=== PATIENT | male | born 1995 | race Caucasian/White ===

== ENCOUNTER → 2017-11-14 | Outpatient (CLI) | payer OTHER ==
[~2017-11-14] MED LIST: LEVO125T72 PO; LEVO300T2 PO
--- NOTE | 2017-11-14 09:13 | DIAGNOSTIC IMAGING REPORT ---
R SCAPULA, L SCAPULA HISTORY: 21 years-old Male NECK PAIN acute bilateral shoulder pain COMPARISON: None available TECHNIQUE: 2 views of the bilateral scapula FINDINGS: RIGHT: No acute fracture or dislocation. No significant degenerative changes. Imaged lung henry appear clear. LEFT: No acute fracture, dislocation or significant degenerative changes. Imaged lung henry appear clear. IMPRESSION: No acute fracture or dislocation. The above report was generated using voice recognition software. It may contain grammatical, syntax or spelling errors. Electronically signed by: Jose Mccoy M.D. 11/14/2017 9:11 AM Dictated Date/Time: 11/14/2017 9:09 AM
--- NOTE | 2017-11-14 09:14 | DIAGNOSTIC IMAGING REPORT ---
THORACIC SPINE 3 VIEWS ROUTINE HISTORY: 21 years-old Male NECK PAIN acute neck pain COMPARISON: CT abdomen and pelvis 10/08/2016 TECHNIQUE: 4 views of the thoracic spine FINDINGS: There are 12 thoracic type vertebral segments present. No acute fracture, subluxation or significant degenerative changes. Imaged lung henry appear clear. No rib fracture identified. IMPRESSION: No acute fracture or subluxation. The above report was generated using voice recognition software. It may contain grammatical, syntax or spelling errors. Electronically signed by: Jose Mccoy M.D. 11/14/2017 9:13 AM Dictated Date/Time: 11/14/2017 9:12 AM
--- NOTE | 2017-11-14 09:21 | DIAGNOSTIC IMAGING REPORT ---
CERVICAL SPINE 2 OR 3 VIEWS CLINICAL HISTORY: Neck pain. COMPARISON STUDY: No previous studies for comparison. FINDINGS: Alignment of the cervical spine is anatomic. No fracture or osseous lesion is identified within the cervical spine by radiography. Facet joints are intact. Disc spaces are preserved. IMPRESSION: Unremarkable cervical spine radiographs. Electronically signed by: Surinder Gomez M.D. 11/14/2017 9:20 AM Dictated Date/Time: 11/14/2017 9:18 AM
[2017-11-14 09:56] LABS: THYROID STIMULATING HORMONE 1.19 uIu/ml (0.300-4.500)
== END | disposition home or self-care (01) ==
LOC: C.RAD1850 08:31
PROVIDERS: ATTEND Internal Medicine
DX: M54.2 Cervicalgia (principal); E03.9 Hypothyroidism, unspecified

== ENCOUNTER → 2017-11-27 | Outpatient (CLI) | payer OTHER ==
--- NOTE | 2017-11-27 13:18 | DIAGNOSTIC IMAGING REPORT ---
THYROID ULTRASOUND CLINICAL HISTORY: Thyroid goiter. COMPARISON STUDY: None. TECHNIQUE: Sonography of the thyroid gland was performed. FINDINGS: Multiple thyroid nodules are noted. The gland is markedly enlarged and hypervascular. The right thyroid lobe measures 9.4 x 2.5 x 3.6 cm and the left lobe measures 9 x 2.6 x 3.5 cm. Note is made of a solid slightly hypoechoic isthmus nodule measures 3.4 x 1.4 x 2.4 cm. There are numerous additional similar-appearing solid and mixed cystic and solid nodules within each thyroid lobe. The largest right lobe nodule is within the upper pole, measuring 2.8 x 1.6 x 1.9 cm. The largest left lobe nodule is within the lower pole, measuring 2.7 x 1.7 x 1.9 cm. IMPRESSION: 1. Markedly enlarged hypervascular multinodular thyroid gland consistent with a multinodular goiter. 2. Numerous similar-appearing thyroid nodules. The sonographic appearance is nonspecific but none of these nodules have suspicious imaging characteristics. Electronically signed by: Surinder Gomez M.D. 11/27/2017 1:17 PM Dictated Date/Time: 11/27/2017 9:58 AM
== END | disposition home or self-care (01) ==
LOC: C.ULTR 09:09
PROVIDERS: ATTEND Internal Medicine
DX: E04.2 Nontoxic multinodular goiter (principal); M54.2 Cervicalgia

== ENCOUNTER → 2018-01-15 | Outpatient (CLI) | payer OTHER ==
[2018-01-15 15:00] LABS: HEMATOCRIT 43.9 % (42-52); HEMOGLOBIN 15.4 g/dL (14.0-18.0); MEAN CELL VOLUME 84.9 fL (80-100); MEAN CORPUSCULAR HEMOGLOBIN 29.8 pg (25-34); MEAN CORPUSCULAR HGB CONC 35.1 g/dl (32-36); MEAN PLATELET VOLUME 10.4 fL (7.4-10.4); PLATELET COUNT 187 K/uL (130-400); RED CELL DISTRIBUTION WIDTH CV 13.1 % (11.5-14.5); RED CELL DISTRIBUTION WIDTH SD 40.3 fL (36.4-46.3); WHITE BLOOD COUNT 4.93 K/uL (4.8-10.8)
[2018-01-15 15:11] LABS: BLOOD UREA NITROGEN 12 mg/dl (7-18); CALCIUM 9.4 mg/dl (8.5-10.1); CARBON DIOXIDE 27 mmol/L (21-32); CREATININE 1.04 mg/dl (0.60-1.40); GLUCOSE 90 mg/dl (70-99); POTASSIUM 3.8 mmol/L (3.5-5.1); SODIUM 137 mmol/L (136-145)
== END | disposition home or self-care (01) ==
LOC: C.LAB1850 12:30
PROVIDERS: ATTEND Internal Medicine
DX: E03.9 Hypothyroidism, unspecified (principal)

== ENCOUNTER → 2018-01-17 | Outpatient (CLI) | payer OTHER ==
[2018-01-17 10:44] LABS: LUTEINIZING HORMONE 3.89 IU/L; PROLACTIN 8.44 ng/mL
[2018-01-23 00:30] LABS: INSULIN LIKE GROWTH FACTOR-I 198 ng/mL (83-456); MICROSOMAL AB <1 IU/ML (<9); TESTOSTERONE,TOTAL 626 ng/dL (250-1100)
== END | disposition home or self-care (01) ==
LOC: C.LAB1850 09:02
PROVIDERS: ATTEND Physician Assistant
DX: E03.9 Hypothyroidism, unspecified (principal); R79.89 Other specified abnormal findings of blood chemistry